=== PATIENT | male | born 1965 | race Caucasian/White ===

== ENCOUNTER 2022-02-08 12:54 | Emergency (ER) | payer SELFPAY ==
[~2022-02-08] VITALS: Ht 175.3 cm; Wt 97.5 kg
[2022-02-08] MEDS ORDERED: IV NS 0.9% 1,000 ML BAG IV ONE (13:30)
--- NOTE | 2022-02-08 13:35 | NUR ---
IV LINE ESTABLISHED, BLOOD DRAW AND SENT TO LAB.
--- NOTE | 2022-02-08 13:38 | NUR ---
PT TAKEN TO RADIOLOGY VIA [facility]
[2022-02-08 13:59] LABS: BASOPHILS % (AUTO) 0.6 % (0.0-2.0); HEMATOCRIT 41 % (39-51); HEMOGLOBIN 13.8 g/dL (13.5-17.5); LYMPHOCYTES # (AUTO) 0.6 K/uL (0.8-4.8); LYMPHOCYTES % (AUTO) 10.2 % (20.0-44.0); MEAN CORPUSCULAR HGB CONC 34 g/dl (31.0-36.0); MEAN CORPUSCULAR VOLUME 101 fL (80-96); MONOCYTES # (AUTO) 0.5 K/uL (0.1-1.30); MONOCYTES % (AUTO) 9.6 % (2.0-12.0); NEUTROPHILS # (AUTO) 4.5 K/uL (1.8-8.9); NEUTROPHILS % (AUTO) 79.6 % (43.0-81.0); PLATELET COUNT (AUTO) 133 K/uL (150-450); RED BLOOD CELL COUNT(AUTO) 4.07 MIL/uL (4.5-6.0); WHITE BLOOD COUNT (AUTO) 5.7 K/uL (4.3-11.0)
[2022-02-08 14:14] LABS: CARBON DIOXIDE 25 mmol/L (21-32); CHLORIDE 99 mmol/L (98-107); POTASSIUM 3.8 mmol/L (3.5-5.1); SODIUM SERUM 140 mmol/L (136-145)
[2022-02-08 14:33] LABS: ALANINE AMINOTRANSFERASE 57 U/L (12-78); ALBUMIN 4.4 g/dL (3.4-5.0); ALCOHOL, BLOOD < 3 mg/dL (0-0); ALKALINE PHOSPHATASE 65 U/L (46-116); ASPARTATE AMINOTRANSFERASE 79 U/L (15-37); BILIRUBIN,DIRECT 0.6 mg/dL (0.0-0.2); BILIRUBIN,TOTAL 1.7 mg/dL (0.2-1.0); CREATININE 0.7 mg/dL (0.6-1.3); GLUCOSE 159 mg/dL (74-106); TOTAL PROTEIN, SERUM 8.3 g/dL (6.4-8.2); UREA NITROGEN, BLOOD 10 mg/dL (7-18)
[2022-02-08] MEDS ORDERED: LORA-259 PO (14:33)
[2022-02-08 14:36] LABS: ACETAMINOPHEN < 10 ug/ml (10-30)
--- NOTE | 2022-02-08 15:06 | NUR ---
IV removed. Catheter intact and site benign. Pressure and 4x4 applied to site. No bleeding noted.
[2022-02-08 15:07] VITALS: BP 148/98
--- NOTE | 2022-02-08 15:07 | NUR ---
Patient discharged to home in stable condition. Written and verbal after care instructions given. Patient verbalizes understanding of instruction.
== END 2022-02-08 15:08 | disposition home or self-care (01) ==
LOC: ER 13:09
DX: R11.2 Nausea with vomiting, unspecified (principal); F10.239 Alcohol dependence with withdrawal, unspecified; I48.91 Unspecified atrial fibrillation; R00.0 Tachycardia, unspecified; R25.1 Tremor, unspecified
CPT/HCPCS: 99285; 96360; 93005 ×2; 71045; 70450; 85025; 80048; 80076; 36415; 84484; 80143; 80320; J7030; G0480